=== PATIENT | male | born 1960 | race Caucasian/White ===

== ENCOUNTER 2016-12-23 06:04 | Day surgery (SDC) | payer SELFPAY ==
[2016-12-23] MEDS ORDERED: ROCURONIUM BROMIDE INJ 50 MG/5 ML VIAL IV ONE (08:42)
[2016-12-23] MEDS ORDERED: SUCCINYLCHOLINE CHLORIDE INJ 200 MG/10 ML VIAL ONE (08:42)
[2016-12-23] MEDS ORDERED: DEXAMETHASONE SOD PHOSPHATE INJ 4 MG/1 ML VIAL ONE (08:42)
[2016-12-23] MEDS ORDERED: LIDOCAINE 2% INJ-PF (20 MG/ML) 10 ML AMPUL ONE (08:42)
[2016-12-23] MEDS ORDERED: ONDANSETRON HCL INJ/PF 4 MG/2 ML SDV ONE (08:42)
[2016-12-23 08:50] LABS: ABSOLUTE BASOPHILS # (AUTO) 0.2 10^3/uL (0.0-0.2); ABSOLUTE EOSINOPHILS # (AUTO) 0.7 10^3/uL (0.0-0.6); ABSOLUTE LYMPHOCYTES (AUTO) 1.9 10^3/uL (0.5-4.7); ABSOLUTE MONOCYTES (AUTO) 0.6 10^3/uL (0.1-1.4); ABSOLUTE NEUT (AUTO) 3.5 10^3/uL (1.7-8.2); BASOPHILS % (AUTO) 2.5 % (0-2); EOSINOPHILS % (AUTO) 10.5 % (0-6); HEMATOCRIT 45.5 % (37.9-51.0); HEMOGLOBIN 15.6 g/dL (13.5-17.0); HGB HCT DIFFERENCE 1.3; LYMPHOCYTES % (AUTO) 27.8 % (13-45); MEAN CORPUSCULAR HEMOGLOBIN 31.6 pg (27.0-33.4); MEAN CORPUSCULAR HGB CONC 34.3 g/dL (32.0-36.0); MEAN CORPUSCULAR VOLUME 92 fl (80-97); MONOCYTES % (AUTO) 8.6 % (3-13); RED BLOOD COUNT 4.95 10^6/uL (4.35-5.55); RED CELL DISTRIBUTION WIDTH 13.2 % (11.5-14.0); SEGMENTED NEUTROPHILS % (AUTO) 50.6 % (42-78); WHITE BLOOD COUNT 6.9 10^3/uL (4.0-10.5)
[2016-12-23 09:05] LABS: APPEARANCE,URINE CLEAR; BILIRUBIN,URINE NEGATIVE (NEGATIVE); GLUCOSE, URINE NEGATIVE (NEGATIVE); KETONES,URINE NEGATIVE (NEGATIVE); LEUKOCYTE ESTERASE,URINE NEGATIVE (NEGATIVE); NITRITE,URINE NEGATIVE (NEGATIVE); PROTEIN,URINE NEGATIVE (NEGATIVE); URINE SPECIFIC GRAVITY 1.016; UROBILINOGEN,URINE NEGATIVE mg/dL (<2.0)
[2016-12-23 09:07] LABS: ALANINE AMINOTRANSFERASE 37 U/L (21-72); ALBUMIN 4.5 g/dL (3.5-5.0); ALKALINE PHOSPHATASE 83 U/L (38-126); ANION GAP 12 (5-19); ASPARTATE AMINO TRANSFERASE 28 U/L (17-59); BILIRUBIN,DIRECT 0.3 mg/dL (0.0-0.4); BILIRUBIN,TOTAL 0.5 mg/dL (0.2-1.3); BLOOD UREA NITROGEN 19 mg/dL (7-20); CALCIUM 9.8 mg/dL (8.4-10.2); CARBON DIOXIDE 24 mmol/L (22-30); CHLORIDE 104 mmol/L (98-107); CREATININE RESULT 0.88 mg/dL (0.52-1.25); GLUCOSE 117 mg/dL (75-110); POTASSIUM 4.4 mmol/L (3.6-5.0); SODIUM 139.6 mmol/L (137-145); TOTAL PROTEIN 7.9 g/dL (6.3-8.2)
--- NOTE | 2016-12-23 10:00 | ER Document Report ---
ED GI/ - General Chief Complaint: Groin Pain Stated Complaint: GROIN PAIN Time Seen by Provider: 12/23/16 07:31 Mode of Arrival: Ambulatory Information source: Patient Notes: Patient is a 56-year-old male who presents to the ER today for left inguinal hernia that he has had for about a year, worsening over the past couple months and much worse over the past 2 weeks. Patient states that at this time it takes about an hour to push the hernia back into place. He does state that it has gone into the left testicle. He admits to pain, until he gets it "popped" back into place completely and then he has some relief. He admits to having bowel movements only every 4-5 days, taking Dulcolax. He denies any dysuria, fever, chills, history of hernia repair. TRAVEL OUTSIDE OF THE [place] IN LAST 30 DAYS: No - Related Data Allergies/Adverse Reactions: Sulfa (Sulfonamide Antibiotics) Allergy (Verified 12/23/16 07:12) Home Medications: Current Home Medications No Home Medications 12/23/16 [History] Past Medical History - General Information source: Patient - Social History Smoking Status: Never Smoker Chew tobacco use (# tins/day): No Frequency of alcohol use: None Drug Abuse: None Family History: Reviewed & Not Pertinent Patient has suicidal ideation: No Patient has homicidal ideation: No Renal/ Medical History: Denies: Hx Peritoneal Dialysis Musculoskeltal Medical History: Reports Hx Arthritis Past Surgical History: Reports: Hx Orthopedic Surgery - RLE - Immunizations Hx Diphtheria, Pertussis, Tetanus Vaccination: Yes Review of Systems - Review of Systems Constitutional: No symptoms reported EENT: No symptoms reported Cardiovascular: No symptoms reported Respiratory: No symptoms reported Gastrointestinal: See HPI Genitourinary: No symptoms reported Male Genitourinary: No symptoms reported Musculoskeletal: No symptoms reported Skin: No symptoms reported Hematologic/Lymphatic: No symptoms reported Neurological/Psychological: No symptoms reported Physical Exam - Vital signs Vitals: Temp Pulse Resp BP Pulse Ox 97.6 F 65 20 131/90 H 96 12/23/16 06:10 12/23/16 06:10 12/23/16 06:10 12/23/16 06:10 12/23/16 06:10 - Notes Notes: PHYSICAL EXAMINATION: GENERAL: Uncomfortable but in no acute distress. HEAD: Atraumatic, normocephalic. EYES: Pupils equal round and reactive to light, extraocular movements intact, sclera anicteric, conjunctiva are normal. NECK: Normal range of motion, supple without lymphadenopathy LUNGS: CTAB and equal. No wheezes rales or rhonchi. HEART: Regular rate and rhythm without murmurs ABDOMEN: Soft, large left indirect inguinal hernia with tenderness to palpation , reducible but slow and difficult to reduce. No guarding, no rebound BACK: no vertebral tenderness, normal ROM GI/: no CVA tenderness EXTREMITIES: Normal range of motion, no pitting edema. No cyanosis. NEUROLOGICAL: Cranial nerves grossly intact. Normal sensory/motor exams. PSYCH: Normal mood, normal affect. SKIN: Warm, Dry, normal turgor, no rashes or lesions noted Course - Re-evaluation Re-evalutation: 12/23/16 14:57 Labwork is unremarkable today with normal white blood cell count, CT reports of left inguinal hernia without obstruction, Dr. Decker, surgeon on-call evaluated the patient and agrees to take him to the operating room at this time as patient does not have insurance and comes in complaining of worsening left inguinal hernia with acute pain. - Vital Signs Vital signs: Temp Pulse Resp BP Pulse Ox 97.5 F 60 18 120/79 95 12/23/16 13:30 12/23/16 13:30 12/23/16 13:30 12/23/16 13:30 12/23/16 13:30 - Laboratory Result Diagrams: 12/23/16 08:35 12/23/16 08:35 Laboratory results interpreted by me: 12/23/16 12/23/16 08:35 08:35 Eosinophils % 10.5 H Basophils % 2.5 H Absolute Eosinophils 0.7 H Glucose 117 H Discharge - Discharge Clinical Impression: Inguinal hernia Qualifiers: Obstruction and gangrene presence: without obstruction or gangrene Laterality: unilateral Recurrence: not specified as recurrent Qualified Code(s): K40.90 - Unilateral inguinal hernia, without obstruction or gangrene, not specified as recurrent Condition: Stable Disposition: ADMITTED INPATIENT Admitting Provider: Surgicalist Unit Admitted: OR
--- NOTE | 2016-12-23 11:36 | RADIOLOGY REPORT (SQ) ---
EXAM DESCRIPTION: CT ABD/PELVIS WITH IV ORAL COMPLETED DATE/TIME: 12/23/2016 11:20 am REASON FOR STUDY: large painfu hernia left, takes an hour to reduce COMPARISON: None. TECHNIQUE: CT scan of the abdomen and pelvis performed using helical scanning technique with dynamic intravenous contrast injection and oral contrast. Images reviewed with lung, soft tissue, and bone w indows. Reconstructed coronal and sagittal MPR images reviewed. Delayed images for evaluation of the urinary system also acquired. All images stored on PACS. All CT scanners at this facility use dose modulation, iterative reconstruction, and/or weight based d osing when appropriate to reduce radiation dose to as low as reasonably achievable (ALARA). [facility]: Dose Right [facility]: CareDose [facility]: Dose Right [facility]: Teradose 4D [facility]: [address] CONTRAST TYPE AND DOSE: contrast/concentration: Isovue 370.00 mg/ml; Total Contrast Delivered: 85.1 ml; Total Saline Delivered: 13.0 ml RENAL FUNCTION: Creatinine 0.88 RADIATION DOSE: Up-to-date CT equipment and radiation dose reduction techniques were employed. CTDIv ol: 10.3 - 14.6 mGy. DLP: 1580 mGy-cm.. LIMITATIONS: None. FINDINGS: LOWER CHEST: No significant findings. No nodules or infiltrates. LIVER: Normal size. No masses. No dilated ducts. SPLEEN: Normal size. No focal lesions. PANCREAS: No masses. No significant calcifications. No adjacent inflammation or peripancreatic fluid collections. Pancreatic duct not dilated. GALLBLADDER: No identified stones by CT criteria. No inflammatory changes to suggest cholecystitis. ADRENAL GLANDS: No significant masses or asymmetry. RIGHT KIDNEY AND URETER: No solid masses. No significant calcifications. No hydronephrosis or hyd roureter. LEFT KIDNEY AND URETER: No solid masses. No significant calcifications. No hydronephrosis or hydr oureter. AORTA AND VESSELS: No aneurysm. No dissection. Renal arteries, SMA, celiac without stenosis. RETROPERITONEUM: No retroperitoneal adenopathy, hemorrhage or masses. BOWEL AND PERITONEAL CAVITY: No masses or inflammatory changes. No free fluid or peritoneal masses. APPENDIX: Normal. PELVIS: No mass. No free fluid. Urine distended bladder is identified. ABDOMINAL WALL: No masses. Left inguinal hernia sac is identified containing bowel without obstructi on. BONES: No significant or acute findings. Degenerative changes are identified in the lumbar and lower thoracic spine OTHER: No other significant finding. IMPRESSION: Left inguinal hernia sac is identified containing bowel without obstruction. Other find ings as noted above TECHNICAL DOCUMENTATION: JOB ID: [id number] Quality ID # [id number]: Final reports with documentation of one or more dose reduction techniques (e.g., Au tomated exposure control, adjustment of the mA and/or kV according to patient size, use of iterative reconstruction technique) 2010 [employer]- All Rights Reserved
--- NOTE | 2016-12-23 14:38 | PDOC H&P ---
History of Present Illness Patient complains of: left groin pain History of Present Illness: BONILLA MEZA JR is a 56 year old male with a 2 yr hx of pain and bulge of the left groin as per hernia. He has presented to the ER today with this complaint and inability to reduce the hernia. At the time of the interview, he statews he has been able to reduce the hernia bulge. Past Medical History Medical History: None Musculoskeltal Medical History: Reports: Arthritis Past Surgical History Past Surgical History: Reports: Orthopedic Surgery - RLE Social History Smoking Status: Never Smoker Frequency of Alcohol Use: Occasional Drugs: None Family History Family History: Reviewed & Not Pertinent Parental Family History Reviewed: Yes Children Family History Reviewed: Yes Sibling(s) Family History Reviewed.: Yes Medication/Allergy Home Medications: Ketorolac Tromethamine [Acular] 3 ml OP Q4 #1 drops 11/23/13 Allergies/Adverse Reactions: Sulfa (Sulfonamide Antibiotics) Allergy (Verified 12/23/16 07:12) Physical Exam Vital Signs: Temp Pulse Resp BP Pulse Ox 97.5 F 60 18 120/79 95 12/23/16 13:30 12/23/16 13:30 12/23/16 13:30 12/23/16 13:30 12/23/16 13:30 Intake & Output 12/22/16 12/23/16 12/24/16 06:59 06:59 06:59 Weight 90.5 kg General appearance: PRESENT: no acute distress Head exam: PRESENT: atraumatic Eye exam: PRESENT: EOMI Neck exam: PRESENT: full ROM Respiratory exam: PRESENT: clear to auscultation sebastian Cardiovascular exam: PRESENT: RRR GI/Abdominal exam: PRESENT: normal bowel sounds, soft Rectal exam: PRESENT: deferred Gentrourinary exam: PRESENT: other - left inguinal tenderness without a mass, heria present on Valsalva Musculoskeletal exam: PRESENT: ambulatory, full ROM Neurological exam: PRESENT: alert, normal gait Skin exam: PRESENT: other - no lesions Results Laboratory Results: 12/23/16 08:35 12/23/16 08:35 12/23/16 12/23/16 12/23/16 08:35 08:35 08:45 WBC 6.9 RBC 4.95 Hgb 15.6 Hct 45.5 MCV 92 MCH 31.6 MCHC 34.3 RDW 13.2 Plt Count 215 Seg Neutrophils % 50.6 Lymphocytes % 27.8 Monocytes % 8.6 Eosinophils % 10.5 H Basophils % 2.5 H Absolute Neutrophils 3.5 Absolute Lymphocytes 1.9 Absolute Monocytes 0.6 Absolute Eosinophils 0.7 H Absolute Basophils 0.2 Sodium 139.6 Potassium 4.4 Chloride 104 Carbon Dioxide 24 Anion Gap 12 BUN 19 Creatinine 0.88 Est GFR ( Amer) > 60 Est GFR (Non-Af Amer) > 60 Glucose 117 H Calcium 9.8 Total Bilirubin 0.5 AST 28 ALT 37 Alkaline Phosphatase 83 Total Protein 7.9 Albumin 4.5 Urine Color YELLOW Urine Appearance CLEAR Urine pH 6.0 Ur Specific [place] 1.016 Urine Protein NEGATIVE Urine Glucose (UA) NEGATIVE Urine Ketones NEGATIVE Urine Blood NEGATIVE Urine Nitrite NEGATIVE Ur Leukocyte Esterase NEGATIVE Urine WBC (Auto) 3 Impressions: Abdomen/Pelvis CT 12/23/16 00:00 IMPRESSION: Left inguinal hernia sac is identified containing bowel without obstruction. Other findings as noted above Assessment & Plan - Plan Summary Plan Summary: Assessment: left groin hernia, with history of recent incarceration, but reduced by the patient while in the ER No medical issues Blood work normal CT scan A/P with left inguinal hernia containing small bowel without evidence of obstruction Plan: Aggressive preop IV hydration Ancef 1 gr IVPB preop Left inguinal herniorraphy with mesh tonight procedure, risks, benefits, and complications discussed with the patient, his questions were answered and he decides to proceed.
[2016-12-23] MEDS ORDERED: NORMAL SALINE 1000 ML 2,000 ML IV ONE (14:59)
[2016-12-23] MEDS ORDERED: NORMAL SALINE 1000 ML 1,000 ML IV PRN ×2 (15:00→18:09)
[2016-12-23] MEDS ORDERED: DIPHENHYDRAMINE HCL 50 MG/ML VIAL IV PRN (15:33)
[2016-12-23] MEDS ORDERED: FENTANYL CITRATE INJ/PF 100 MCG/2 ML AMPUL IV PRN ×3 (15:33)
[2016-12-23] MEDS ORDERED: PROMETHAZINE HCL INJ 25 MG/1 ML VIAL IV PRN (15:33)
[2016-12-23] MEDS ORDERED: MORPHINE SULFATE 10 MG/ML INJ IV PRN ×2 (15:33→18:03)
[2016-12-23] MEDS ORDERED: ONDANSETRON HCL INJ/PF 4 MG/2 ML SDV IV PRN ×2 (15:33→18:03)
[2016-12-23] MEDS ORDERED: MEPERIDINE HCL/PF INJ 25 MG/1 ML DISP.SYRIN IV PRN (15:33)
[2016-12-23] MEDS ORDERED: CEFAZOLIN INJ 1 GM VIAL ONE (15:39)
[2016-12-23] MEDS ORDERED: FENTANYL CITRATE INJ/PF 100 MCG/2 ML AMPUL ONE (15:55)
[2016-12-23] MEDS ORDERED: ACETAMINOPHEN 100 ML IV ONE (15:56)
[2016-12-23] MEDS ORDERED: PROPOFOL INJ 200 MG/20 ML VIAL IV ONE (15:56)
[2016-12-23] MEDS ORDERED: MIDAZOLAM 2 MG/2 ML INJ ONE (15:56)
[2016-12-23] MEDS ORDERED: HYDROMORPHONE HCL INJ/PF 2 MG/ML AMPULE ONE (15:56)
[2016-12-23] MEDS ORDERED: BUPIVACAINE HCL 0.5 % INJ/PF 30 ML SDV ONE (16:10)
[2016-12-23] MEDS ORDERED: PANTOPRAZOLE SODIUM 40 MG VIAL IV ONE (19:00)
--- NOTE | 2016-12-23 19:13 | OPERATIVE REPORT E ---
Operative Report NAME: BONILLA MEZA : 1960 AGE: 56Y DATE OF SURGERY: 12/23/2016 ROOM: ED21 PREOPERATIVE DIAGNOSES: 1. Left indirect inguinal hernia. 2. Left inguinal hernia lipoma. POSTOPERATIVE DIAGNOSES: 1. Left indirect inguinal hernia. 2. Left inguinal hernia lipoma. OPERATION: Left inguinal hernia repair with mesh. SURGEON: GALA ALEMAN M.D. HELPER TEACHER: None. ESTIMATED BLOOD LOSS: Minimal. COMPLICATIONS: None. ANESTHESIA: General plus 20 mL of 0.5% Marcaine with epinephrine. FLUIDS: 2000. DRAINS: None. INDICATION AND FINDINGS: This is a healthy 56-year-old male who came to the emergency room today with a history of a left groin bulge and pain. He had an obvious inguinal hernia which was initially incarcerated, but the patient was able to reduce the hernia himself. The patient reports a history of 2 years of this problem, and decision was made to take the patient to surgery to undergo repair of the hernia. Procedure, risks, benefits, complications explained to the patient, and he agreed to decide to proceed. DESCRIPTION OF PROCEDURE: In the operating room, the patient was placed in the supine position. General anesthesia induced by endotracheal intubation. Abdomen prepped and draped in the usual fashion. The left groin was found to have a bulge. It was infiltrated with lidocaine. A curvilinear incision was made just below the inguinal ligament to the subcutaneous tissue and Jem's fascia utilizing a Bovie. The external oblique fascia was identified, opened with scissors proximally and distally. The cord was then identified and elevated. Dissection of the cord was then began. A large lipoma was identified. It was dissected up to the internal inguinal ring followed by dissection of the indirect inguinal hernia sac. The sac was then opened. It was completely dissected down to the neck. A 2-0 silk pursestring was placed in the neck of the sac which was then cut and tied and pushed inside the preperitoneal space. The lipoma was then clamped at the base, divided with scissors, and the stump was ligated with a 2-0 silk suture on a needle. This was then pushed inside the preperitoneal space as well. The preperitoneal space was then inspected by finger and enlarged, and the Ultrapro mesh was inserted into the preperitoneal space. It was nicely deployed. The mesh was then secured to the internal inguinal ring with a [id number] #0-Prolene suture. The remaining portion of the mesh was then placed over the floor and beneath the cord. The distal end of the mesh was divided, and the tails were placed around the cord and sutured together with an #0-Prolene suture. The external oblique fascia was then closed with running #0-Prolene suture. The subcutaneous fat was then closed with a running 2-0 Vicryl. The area was then irrigated. The skin was closed with 4-0 PDS running subcuticular suture with Dermabond. The patient tolerated the procedure well, extubated, and transferred to the recovery room in satisfactory condition. DICTATING PHYSICIAN: GALA ALEMAN M.D. [id number] PHY#: [id number] ID: [id number] JOB#: [id number] ACCT: [id number] cc:GALA ALEMAN M.D. > MTDD
[2016-12-23] MEDS ORDERED: HEPARIN SOD (PORCINE) 5,000 UNIT/ML 1 ML SYRINGE SUBCUT SCH (22:00)
[2016-12-23] MEDS ORDERED: CEFAZOLIN 1 GM/D5W RTU 4 GM/200 ML RTUPB IV ONE (23:11)
[2016-12-23] MEDS: CEFAZOLIN 2 GM/D5W RTU 50 ML IV SCH (23:30)
[2016-12-24] MEDS: CEFAZOLIN 2 GM/D5W RTU 50 ML IV SCH (06:10)
[2016-12-24 06:29] LABS: ANION GAP 12 (5-19); BLOOD UREA NITROGEN 14 mg/dL (7-20); CALCIUM 8.9 mg/dL (8.4-10.2); CARBON DIOXIDE 18 mmol/L (22-30); CHLORIDE 107 mmol/L (98-107); CREATININE RESULT 0.63 mg/dL (0.52-1.25); GLUCOSE 120 mg/dL (75-110); POTASSIUM 4.5 mmol/L (3.6-5.0); SODIUM 137.2 mmol/L (137-145)
[2016-12-24 06:37] LABS: ABSOLUTE MONOCYTES (AUTO) 0.6 10^3/uL (0.1-1.4); ABSOLUTE NEUT (AUTO) 8.8 10^3/uL (1.7-8.2); BASOPHILS % (AUTO) 0.3 % (0-2); EOSINOPHILS % (AUTO) 0.1 % (0-6); HEMATOCRIT 42.2 % (37.9-51.0); HEMOGLOBIN 14.3 g/dL (13.5-17.0); HGB HCT DIFFERENCE 0.7; LYMPHOCYTES % (AUTO) 9.3 % (13-45); MEAN CORPUSCULAR HEMOGLOBIN 31.3 pg (27.0-33.4); MEAN CORPUSCULAR VOLUME 92 fl (80-97); MONOCYTES % (AUTO) 5.4 % (3-13); RED BLOOD COUNT 4.57 10^6/uL (4.35-5.55); RED CELL DISTRIBUTION WIDTH 13.1 % (11.5-14.0); SEGMENTED NEUTROPHILS % (AUTO) 84.9 % (42-78); WHITE BLOOD COUNT 10.3 10^3/uL (4.0-10.5)
[2016-12-24 08:08] VITALS: BP 110/76
[2016-12-24] MEDS ORDERED: ONDANSETRON HCL INJ/PF 4 MG/2 ML SDV IV PRN (08:30)
--- NOTE | 2016-12-24 09:04 | PDOC PROGRESS REPORT ---
Subjective Progress Note for:: 12/24/16 Subjective:: Feels well. Left groin pain with ambulation only. Physical Exam Vital Signs: Temp Pulse Resp BP Pulse Ox 97.6 F 62 17 110/76 100 12/24/16 07:42 12/24/16 07:42 12/24/16 02:50 12/24/16 07:42 12/24/16 07:42 Intake & Output 12/23/16 12/24/16 12/25/16 06:59 06:59 06:59 Intake Total 2710 Output Total 85 Balance 2625 General appearance: PRESENT: no acute distress, cooperative Respiratory exam: PRESENT: clear to auscultation sebastian Cardiovascular exam: PRESENT: RRR GI/Abdominal exam: PRESENT: other - Soft, nondistended, tenderness at the groin with dressings intact with minimal swelling. Some bruising in the groin without fluctuance Results Laboratory Results: 12/24/16 03:50 12/24/16 03:50 12/24/16 12/24/16 03:50 03:50 WBC 10.3 RBC 4.57 Hgb 14.3 Hct 42.2 MCV 92 MCH 31.3 MCHC 34.0 RDW 13.1 Plt Count 168 Seg Neutrophils % 84.9 H Lymphocytes % 9.3 L Monocytes % 5.4 Eosinophils % 0.1 Basophils % 0.3 Absolute Neutrophils 8.8 H Absolute Lymphocytes 1.0 Absolute Monocytes 0.6 Absolute Eosinophils 0.0 Absolute Basophils 0.0 Sodium 137.2 Potassium 4.5 Chloride 107 Carbon Dioxide 18 L Anion Gap 12 BUN 14 Creatinine 0.63 Est GFR ( Amer) > 60 Est GFR (Non-Af Amer) > 60 Glucose 120 H Calcium 8.9 Impressions: Abdomen/Pelvis CT 12/23/16 00:00 IMPRESSION: Left inguinal hernia sac is identified containing bowel without obstruction. Other findings as noted above Assessment & Plan - Diagnosis (1) Inguinal hernia Qualifiers: Obstruction and gangrene presence: without obstruction or gangrene Laterality: unilateral Recurrence: not specified as recurrent Qualified Code(s): K40.90 - Unilateral inguinal hernia, without obstruction or gangrene, not specified as recurrent Is this a current diagnosis for this admission?: YesPlan: Status post left inguinal hernia repair. Patient looks good. Will discharge patient home.
--- NOTE | 2016-12-24 09:33 | DISCHARGE SUMMARY E ---
Discharge Summary NAME: BONILLA MEZA : 1960 AGE: 56Y ADMITTED: 12/23/2016 DISCHARGED: 12/24/2016 DISCHARGE DIAGNOSIS: Incarcerated left inguinal hernia. PROCEDURE PERFORMED DURING HOSPITALIZATION: Left inguinal hernia repair with mesh performed by Dr. Decker on 12/23/2016. HOSPITAL COURSE: Patient underwent the above-mentioned surgery. He did well postoperatively. He was tolerating a diet well. His exam looked good other than some very mild bruising. Patient is being discharged to home in good condition. He will follow up with [facility] in 1 week. He is encouraged to stay active but avoid strenuous activity. DISCHARGE MEDICATION: Percocet 1-2 p.o. every 4 hours p.r.n. pain. DICTATING PHYSICIAN: MANUELITO FARR M.D. [id number] PHY#: [id number] ID: [id number] JOB#: [id number] ACCT: [id number] cc:MANUELITO FARR M.D. [facility],
[2016-12-24] MEDS ORDERED: PANTOPRAZOLE SODIUM 40 MG VIAL IV SCH (10:00)
[2016-12-24] MEDS ORDERED: HEPARIN SOD (PORCINE) 5,000 UNIT/ML 1 ML SYRINGE SUBCUT SCH (10:00)
--- NOTE | 2016-12-25 05:57 | EKG REPORT ---
SEVERITY:- OTHERWISE NORMAL ECG - SINUS ARRHYTHMIA, RATE 48-69 : Confirmed by: Rosa Granados MD 25-Dec-2016 05:57:25
== END 2016-12-24 10:50 | disposition home or self-care (01) ==
LOC: ER 06:04 → UNDOADMIN 15:09 → ER 15:09 → EH 15:09 → OROUT 15:09 → EH 18:45 → 5 18:45 → UNDODISIN 12-24 10:50 → OROUT 12-24 10:50
PROVIDERS: ATTEND Surgery
PROC: 0YU60JZ Supplement Left Inguinal Region with Synthetic Substitute, Open Approach (ICD-10-PCS; principal; 2016-12-23 16:30)
DX: K40.30 Unilateral inguinal hernia, with obstruction, without gangrene, not specified as recurrent (principal); D17.6 Benign lipomatous neoplasm of spermatic cord; M19.90 Unspecified osteoarthritis, unspecified site; Z88.2 Allergy status to sulfonamides
CPT/HCPCS: 49507; 99285; 36415 ×2; 87040; 85025 ×2; 80048; 80053; 81001; 88302 ×2; 88304 ×2; 74177; 93005; 93010; C1781; J2250; J0690 ×3; J3490 ×2; J1100; J3010; J1170; S0164; J0330; J2405; J7030 ×2; J2704; J0131; 830